=== PATIENT | male | born 1960 | race Caucasian/White ===

== ENCOUNTER → 2024-08-28 | Outpatient (BNVA) | payer MEDICAID, SELFPAY | END | disposition home or self-care (01) | PROVIDERS: PCP Nurse Practitioner Family; Referring Provider Nurse Practitioner Family; Visit Provider Nurse Practitioner Family | DX: M25.551 Pain in right hip (principal); M54.50 Low back pain, unspecified | CPT/HCPCS: 90471; 90686; 99214 ==

== ENCOUNTER → 2024-08-29 | Outpatient (CLI) | payer MEDICAID, SELFPAY ==
--- NOTE | 2024-08-29 07:12 | XR_ITS ---
Examination: Bilateral hips, AP pelvis, 5 views Technique: AP, lateral views both hips, AP pelvis, 5 views Exam date and time: August 29, 2024 0732 hrs. Indications: Patient fell August 11, 2024 with injury to both hips, bilateral hip pain. Findings: Moderate osteopenia No right or left hip fracture or hip dislocation Moderate narrowing hip joints Impression: No acute hip or pelvic fracture
--- NOTE | 2024-08-29 07:12 | XR_ITS ---
Examination: Lumbar spine 3 views Technique one AP lateral coned lateral lower lumbar spine 3 views Exam date and time: August 29, 2024 0736 hrs. Indications: Patient fell August 11, 2024 with injury to the lower back, lower back pain. Findings: Satisfactory alignment lumbar vertebral bodies No acute lumbar fracture Moderate lumbar spondylosis No spondylolisthesis Impression: Moderate lumbar spondylosis No acute lumbar fracture
== END | disposition home or self-care (01) ==
LOC: CDIM 06:42
PROVIDERS: Referring Provider Nurse Practitioner Family; Visit Provider Nurse Practitioner Family
DX: M47.816 Spondylosis without myelopathy or radiculopathy, lumbar region (principal); M25.552 Pain in left hip; M25.551 Pain in right hip; S39.92XA Unspecified injury of lower back, initial encounter; S79.912A Unspecified injury of left hip, initial encounter; S79.911A Unspecified injury of right hip, initial encounter; W19.XXXA Unspecified fall, initial encounter
CPT/HCPCS: 72100; 73522

== ENCOUNTER → 2024-08-30 | Outpatient (BNVA) | payer MEDICAID, SELFPAY | END | disposition home or self-care (01) | PROVIDERS: PCP Nurse Practitioner Primary Care; Referring Provider Nurse Practitioner Primary Care; Visit Provider Nurse Practitioner Primary Care | DX: Z71.2 Person consulting for explanation of examination or test findings (principal); Z01.810 Encounter for preprocedural cardiovascular examination | CPT/HCPCS: 93005; 99215 ==

== ENCOUNTER → 2024-10-05 | Outpatient (BNVA) | payer MEDICAID, SELFPAY | END | disposition home or self-care (01) | PROVIDERS: PCP Nurse Practitioner Primary Care; Referring Provider Nurse Practitioner Primary Care; Visit Provider Nurse Practitioner Primary Care | DX: M54.50 Low back pain, unspecified (principal); Z71.3 Dietary counseling and surveillance; Z68.43 Body mass index [BMI] 50.0-59.9, adult; N18.31 Chronic kidney disease, stage 3a; Z71.2 Person consulting for explanation of examination or test findings; Z13.820 Encounter for screening for osteoporosis | CPT/HCPCS: 99214 ==

== ENCOUNTER → 2024-11-01 | Outpatient (BNVA) | payer MEDICAID, SELFPAY | END | disposition home or self-care (01) | PROVIDERS: PCP Nurse Practitioner Primary Care; Referring Provider Nurse Practitioner Primary Care; Visit Provider Nurse Practitioner Primary Care | DX: Z71.3 Dietary counseling and surveillance (principal); E66.9 Obesity, unspecified; Z68.43 Body mass index [BMI] 50.0-59.9, adult; I48.0 Paroxysmal atrial fibrillation; I50.20 Unspecified systolic (congestive) heart failure | CPT/HCPCS: 99214 ==

== ENCOUNTER → 2024-11-29 | Outpatient (BNVA) | payer MEDICAID, SELFPAY | END | disposition home or self-care (01) | PROVIDERS: PCP Nurse Practitioner Primary Care; Referring Provider Nurse Practitioner Primary Care; Visit Provider Nurse Practitioner Primary Care | DX: Z71.3 Dietary counseling and surveillance (principal); Z68.43 Body mass index [BMI] 50.0-59.9, adult; I47.19 Other supraventricular tachycardia; I50.20 Unspecified systolic (congestive) heart failure | CPT/HCPCS: 99213 ==

== ENCOUNTER → 2024-12-29 | Outpatient (BNVA) | payer MEDICAID, SELFPAY | END | disposition home or self-care (01) | PROVIDERS: PCP Internal Medicine; Referring Provider Internal Medicine; Visit Provider Internal Medicine | DX: N18.31 Chronic kidney disease, stage 3a (principal); I50.20 Unspecified systolic (congestive) heart failure; I47.10 Supraventricular tachycardia, unspecified; E66.9 Obesity, unspecified; Z68.43 Body mass index [BMI] 50.0-59.9, adult; R73.03 Prediabetes; M54.50 Low back pain, unspecified | CPT/HCPCS: 99204 ==

== ENCOUNTER → 2025-02-15 | Outpatient (BNVA) | payer MEDICAID, SELFPAY | END | disposition home or self-care (01) | PROVIDERS: PCP Nurse Practitioner Primary Care; Referring Provider Nurse Practitioner Primary Care; Visit Provider Nurse Practitioner Primary Care | DX: Z76.0 Encounter for issue of repeat prescription (principal) | CPT/HCPCS: 99212; G0463 ==

== ENCOUNTER → 2025-02-20 | Outpatient (BNVA) | payer MEDICAID, SELFPAY | END | disposition home or self-care (01) | PROVIDERS: PCP Nurse Practitioner Primary Care; Referring Provider Nurse Practitioner Primary Care; Visit Provider Nurse Practitioner Primary Care | DX: N18.30 Chronic kidney disease, stage 3 unspecified (principal); R73.03 Prediabetes; E66.9 Obesity, unspecified; I50.20 Unspecified systolic (congestive) heart failure ==

== ENCOUNTER → 2025-02-20 | Outpatient (CLI) | payer MEDICAID, SELFPAY ==
--- NOTE | 2025-02-20 07:00 | XR_ITS ---
Examination: MRI lumbar spine without contrast Date and time of exam: February 20, 2025 0754 hours INDICATIONS: Patient fell 6 months ago with injury to lower back, lower back pain Technique: Multiple MRI axial and sagittal sections lumbar spine. Sagittal T2-weighted images, TR 3500, TE 118 T1 weighted transverse sections, TR 688 T8.5, T2-weighted sagittal sections T1 weighted sagittal sections TR 621, TE 30 T2 axial sections, TR 4, 190, TE 84. Findings: Images are degraded by patient motion No acute lumbar fracture Mild chronic compression L3 Diffuse lumbar disc dislocation No spondylolisthesis L5-S1 3 mm central lumbar disc bulge extending to the foraminal regions with mild left L5 ganglionic compression More cephalad levels unremarkable for disc protrusion IMPRESSION: No acute lumbar fracture L5-S1 3 mm central lumbar disc bulge extending to the foraminal regions with mild left L5 ganglionic compression
== END | disposition home or self-care (01) ==
LOC: SMRI 06:50
PROVIDERS: PCP Nurse Practitioner Primary Care; Referring Provider Nurse Practitioner Primary Care; Visit Provider Nurse Practitioner Primary Care
DX: S34.105A Unspecified injury to L5 level of lumbar spinal cord, initial encounter (principal); W19.XXXA Unspecified fall, initial encounter; Z87.81 Personal history of (healed) traumatic fracture; S33.101A Dislocation of unspecified lumbar vertebra, initial encounter
CPT/HCPCS: 72148

== ENCOUNTER → 2025-02-21 | Outpatient (BNVA) | payer MEDICAID, SELFPAY | END | disposition home or self-care (01) | PROVIDERS: PCP Nurse Practitioner Family; Referring Provider Nurse Practitioner Family; Visit Provider Nurse Practitioner Family | DX: M51.16 Intervertebral disc disorders with radiculopathy, lumbar region (principal) | CPT/HCPCS: 99212; G0463 ==

== ENCOUNTER → 2025-03-07 | Outpatient (BNVA) | payer MEDICAID, SELFPAY | END | disposition home or self-care (01) | PROVIDERS: PCP Nurse Practitioner Family; Referring Provider Nurse Practitioner Family; Visit Provider Nurse Practitioner Family | DX: Z76.0 Encounter for issue of repeat prescription (principal); I48.91 Unspecified atrial fibrillation; I50.20 Unspecified systolic (congestive) heart failure | CPT/HCPCS: 99212; G0463 ==

== ENCOUNTER → 2025-03-13 | Outpatient (BNVA) | payer MEDICAID, SELFPAY | END | disposition home or self-care (01) | PROVIDERS: PCP Nurse Practitioner Primary Care; Referring Provider Nurse Practitioner Primary Care; Visit Provider Nurse Practitioner Family | DX: Z71.3 Dietary counseling and surveillance (principal); E66.9 Obesity, unspecified; R73.03 Prediabetes; Z68.43 Body mass index [BMI] 50.0-59.9, adult | CPT/HCPCS: 99213 ==

== ENCOUNTER → 2025-03-30 | Outpatient (BNVA) | payer MEDICAID, SELFPAY | END | disposition home or self-care (01) | PROVIDERS: PCP Internal Medicine; Referring Provider Internal Medicine; Visit Provider Internal Medicine | DX: N18.31 Chronic kidney disease, stage 3a (principal); I50.9 Heart failure, unspecified; I47.10 Supraventricular tachycardia, unspecified; E66.9 Obesity, unspecified; R73.03 Prediabetes; M54.50 Low back pain, unspecified; I48.91 Unspecified atrial fibrillation; D75.1 Secondary polycythemia; Z68.43 Body mass index [BMI] 50.0-59.9, adult | CPT/HCPCS: 99214 ==

== ENCOUNTER → 2025-04-09 | Outpatient (BNVA) | payer MEDICAID, SELFPAY | END | disposition home or self-care (01) | PROVIDERS: PCP Nurse Practitioner Primary Care; Referring Provider Nurse Practitioner Primary Care; Visit Provider Nurse Practitioner Primary Care | DX: Z71.3 Dietary counseling and surveillance (principal); I10 Essential (primary) hypertension; R53.83 Other fatigue; E66.01 Morbid (severe) obesity due to excess calories; Z68.43 Body mass index [BMI] 50.0-59.9, adult | CPT/HCPCS: 99214 ==

== ENCOUNTER → 2025-05-15 | Outpatient (BNVA) | payer MEDICAID, SELFPAY | END | disposition home or self-care (01) | PROVIDERS: PCP Nurse Practitioner Primary Care; Referring Provider Nurse Practitioner Primary Care; Visit Provider Nurse Practitioner Primary Care | DX: I11.0 Hypertensive heart disease with heart failure (principal); Z71.3 Dietary counseling and surveillance; Z76.0 Encounter for issue of repeat prescription; I50.9 Heart failure, unspecified; E66.813 Obesity, class 3; Z68.43 Body mass index [BMI] 50.0-59.9, adult | CPT/HCPCS: 99213 ==

== ENCOUNTER → 2025-06-08 | Outpatient (BNVA) | payer MEDICAID, SELFPAY | END | disposition home or self-care (01) | PROVIDERS: PCP Nurse Practitioner Primary Care; Referring Provider Nurse Practitioner Primary Care; Visit Provider Nurse Practitioner Primary Care | DX: I11.0 Hypertensive heart disease with heart failure (principal); Z76.0 Encounter for issue of repeat prescription; I50.9 Heart failure, unspecified; E66.813 Obesity, class 3; Z68.43 Body mass index [BMI] 50.0-59.9, adult; Z23 Encounter for immunization | CPT/HCPCS: 90471; 90677; 99213; G0009 ==

== ENCOUNTER → 2025-08-17 | Outpatient (BNVA) | payer MEDICAID, SELFPAY | END | disposition home or self-care (01) | PROVIDERS: PCP Internal Medicine; Referring Provider Internal Medicine; Visit Provider Internal Medicine | DX: N18.31 Chronic kidney disease, stage 3a (principal); I50.9 Heart failure, unspecified; I47.10 Supraventricular tachycardia, unspecified; E66.813 Obesity, class 3; Z68.43 Body mass index [BMI] 50.0-59.9, adult; R73.03 Prediabetes; D75.1 Secondary polycythemia | CPT/HCPCS: 99213 ==